=== PATIENT | female | born 1955 | race Caucasian/White ===

== ENCOUNTER 2025-06-08 15:43 | Emergency (ER) | payer OTHER ==
[2025-06-08 15:58] VITALS: BP 118/68; PULSE 82; RESP 17; TEMP 98.6; BMI 26.4
[2025-06-08] MEDS: diphenhydrAMINE HCL 25 MG CAPSULE (FP) PO ONE (16:03)
[2025-06-08] MEDS: predniSONE 20 MG TABLET (UD) PO ONE (16:03)
== END 2025-06-08 16:31 | disposition home or self-care (01) ==
LOC: FER 15:43
DX: L25.9 Unspecified contact dermatitis, unspecified cause (principal); L29.9 Pruritus, unspecified; L53.9 Erythematous condition, unspecified; R21 Rash and other nonspecific skin eruption
CPT/HCPCS: 99283-25